=== PATIENT | female | born 2000 | race Caucasian/White ===

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

== ENCOUNTER 2018-02-04 13:04 | Inpatient (IN) | payer OTHER ==
[2018-02-04] MEDS ORDERED: Lidocaine 1% 50 ML MDV INJECT PRN (15:00)
[2018-02-04] MEDS ORDERED: Nalbuphine 10 MG/1 ML Vial IVPUSH PRN (15:00)
[2018-02-04] MEDS ORDERED: Oxytocin/0.9 % Sodium Chloride 30 UNIT/500 ML BAG IV SCH ×2 (15:00→17:15)
[2018-02-04] MEDS ORDERED: Sodium Chloride 0.9% 10 ML Syringe FLUSH PRN (15:00)
[2018-02-04] MEDS ORDERED: Water For Irrigation,Sterile 1,000 ML Container IRR PRN (15:00)
[2018-02-04] MEDS ORDERED: Tranexamic Acid 1,000 MG in Sodium Chloride 0.9% 100 ML IV PRN (15:00)
[2018-02-04] MEDS ORDERED: Misoprostol 200 MCG Tab PO PRN (15:00)
[2018-02-04] MEDS ORDERED: Sodium Chloride 0.9% 2.5 ML Syringe FLUSH PRN (15:00)
[2018-02-04] MEDS ORDERED: Methylergonovine 0.2 MG/1 ML Amp IM PRN (15:00)
[2018-02-04] MEDS ORDERED: Carboprost Tromethamine 250 MCG/1 ML Amp IM PRN (15:00)
--- NOTE | 2018-02-04 15:14 | PCM.LDHP ---
L&D History of Present Illness - General Date of Service: 02/04/18 Admit Problem/Dx: Patient Status Order with Admit Dx/Problem 02/04/18 13:13 Patient Status [ADT] Routine 02/04/18 15:00 Patient Status [ADT] Routine Admission Diagnosis/Problem Admission Diagnosis/Problem - planned 02/04/18 15:11 17yo EDC 02/06/2018 39 5/7wks, A+, RI, GBS pos. Active labor Source of Information: Patient History Limitations: Reports: No Limitations - History of Present Illness Timing/Duration: Reports: minutes: Location, : Reports: Abdomen Quality: Reports: Ache Improves with: Reports: None Worsens with: Reports: None Associated Symptoms: Reports: N - Related Data Allergies/Adverse Reactions: Allergies Allergy/AdvReac Type Severity Reaction Status Date / Time No Known Allergies Allergy Verified 12/28/17 17:13 Home Medications: Home Meds Pnv No.95/Ferrous Fum/Folic AC [ Multivitamin Tablet] 1 tab PO DAILY [History] Past Medical History - Past Health History Medical/Surgical History: Denies 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: , 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/BYN History: currently 13 weeks ; Social & Family History - Family History Family Medical History: Noncontributory - Caffeine Use Caffeine Use: Reports: None H&P Review of Systems - Review of Systems: Review Of Systems: See Below General: Reports: No Symptoms HEENT: Reports: No Symptoms Pulmonary: Reports: No Symptoms Cardiovascular: Reports: No Symptoms Gastrointestinal: Reports: No Symptoms Genitourinary: Reports: No Symptoms Musculoskeletal: Reports: No Symptoms Skin: Reports: No Symptoms Psychiatric: Reports: No Symptoms Neurological: Reports: No Symptoms Hematologic/Lymphatic: Reports: No Symptoms Immunologic: Reports: No Symptoms L&D Exam - Exam Exam: See Below - OB Specific Contraction Intensity: Moderate to Strong Movement: Active Heart Tones: Present Heart Tones per Min: 140 Heart Rate (FHR) Variability: Moderate (6-25 bmp) Presentation: Vertex Estimated Weight: 3250 - Eugene Score Eugene Score Cervix Position: Anterior Eugene Score Consistency: Soft Eugene Score Effacement: >80% Eugene Score Dilation: 3-4 cm Eugene Score Infant's Station: -2 Eugene Score Total: 10 - Exam General: Alert, Oriented, Cooperative HEENT: Hearing Intact Lungs: Clear to Auscultation, Normal Respiratory Effort Cardiovascular: Regular Rate, Regular Rhythm, Normal S1, Normal S2 GI/Abdominal Exam: Soft, Non-Tender Rectal Exam: Deferred Genitourinary: Normal external exam, Normal bimanual exam, Cervical dilitation Back Exam: Normal Inspection, Full Range of Motion Extremities: Normal Inspection, Normal Range of Motion, Non-Tender, No Pedal Edema, Normal Capillary Refill Skin: Warm, Dry, Intact Neurological: Cranial Nerves Intact, Reflexes Equal Bilateral, Strength Equal Bilateral, Normal Gait, Normal Speech, Normal Tone, Sensation Intact Psychiatric: Alert, Normal Affect, Normal Mood - Patient Data Lab Results Last 24 hrs: Laboratory Results - last 24 hr 02/04/18 Range/Units 13:15 Urine Color YELLOW Urine Appearance CLEAR Urine pH 7.0 (5.0-8.0) Ur Specific [place] 1.015 (1.001-1.035) Urine Protein NEGATIVE (NEGATIVE) mg/dL Urine Glucose (UA) NEGATIVE (NEGATIVE) mg/dL Urine Ketones NEGATIVE (NEGATIVE) mg/dL Urine Occult Blood NEGATIVE (NEGATIVE) Urine Nitrite NEGATIVE (NEGATIVE) Urine Bilirubin NEGATIVE (NEGATIVE) Urine Urobilinogen 0.2 (<2.0) EU/dL Ur Leukocyte Esterase SMALL (NEGATIVE) - Problem List (1) Supervision of normal IUP (intrauterine ) in primigravida SNOMED Code(s): 20220948, 408494889, 134730129, 314441259 ICD Code: Z34.00 - ENCNTR FOR SUPRVSN OF NORMAL FIRST , UNSP TRIMESTER Status: Acute Priority: High Current Visit: Yes Qualifiers: Trimester: third trimester Qualified Code(s): Z34.03 - Encounter for supervision of normal first , third trimester Problem List Initiated/Reviewed/Updated: Yes Orders Last 24hrs: Active Orders 24 hr Category Date Time Status Patient Status [ADT] Routine ADT 02/04/18 15:00 Active Heart Tones [RC] CONTINUOUS Care 02/04/18 15:00 Active Non Stress Test [RC] PER UNIT ROUTINE Care 02/04/18 15:00 Active May Shower [RC] ASDIRECTED Care 02/04/18 15:00 Active Notify Provider [RC] PRN Care 02/04/18 15:00 Active Up ad Mojgan [RC] ASDIRECTED Care 02/04/18 13:13 Active Up ad Mojgan [RC] ASDIRECTED Care 02/04/18 15:00 Active Vaginal Exam [RC] PRN Care 02/04/18 15:00 Active Vital Signs [RC] PER UNIT ROUTINE Care 02/04/18 13:13 Active Vital Signs [RC] PER UNIT ROUTINE Care 02/04/18 15:00 Active CBC W/O DIFF,HEMOGRAM [HEME] Routine Lab 02/04/18 15:00 Ordered TYPE AND SCREEN [BBK] Routine Lab 02/04/18 15:00 Ordered Ampicillin 1 gm Med 02/04/18 19:30 Active Sodium Chloride 0.9% [Normal Saline] 50 ml IV Q4H Ampicillin 2 gm Med 02/04/18 15:30 Active Sodium Chloride 0.9% [Normal Saline] 100 ml IV ONETIME Carboprost Tromethamine [Hemabate DS] Med 02/04/18 15:00 Active 250 mcg IM ASDIRECTED PRN Lactated Ringers [Ringers, Lactated] 1,000 ml Med 02/04/18 15:00 Active IV ASDIRECTED Lidocaine 1% [Xylocaine 1%] Med 02/04/18 15:00 Active 50 ml INJECT ONETIME PRN Methylergonovine [Methergine] Med 02/04/18 15:00 Active 0.2 mg IM ASDIRECTED PRN Nalbuphine [Nubain] Med 02/04/18 15:00 Active 10 mg IVPUSH Q1H PRN Oxytocin/0.9 % Sodium Chloride [Oxytocin 30 Unit/500 ML Med 02/04/18 15:00 Active -NS] 30 unit in 500 ml IV TITRATE Sodium Chloride 0.9% [Saline Flush] Med 02/04/18 15:00 Active 10 ml FLUSH ASDIRECTED PRN Sodium Chloride 0.9% [Saline Flush] Med 02/04/18 15:00 Active 2.5 ml FLUSH ASDIRECTED PRN Tranexamic Acid [Cyklokapron] 1,000 mg Med 02/04/18 15:00 Active Sodium Chloride 0.9% [Normal Saline] 100 ml IV ONETIME Water For Irrigation,Sterile [Sterile Water for Med 02/04/18 15:00 Active Irrigation] 1,000 ml IRR ASDIRECTED PRN miSOPROStol [Cytotec] Med 02/04/18 15:00 Active 200 mcg PO ONETIME PRN Scalp Electrode [WOMSER] Per Unit Routine Oth 02/04/18 15:00 Ordered Peripheral IV Insertion Adult [OM.PC] Routine Oth 02/04/18 15:00 Ordered Resuscitation Status Routine Resus Stat 02/04/18 13:13 Ordered Medication Orders Carboprost Tromethamine (Hemabate Ds) 250 mcg IM ASDIRECTED PRN PRN Reason: Post Hemorrhage Lactated Ringer's (Ringers, Lactated) 1,000 mls @ 150 mls/hr IV ASDIRECTED DANY Oxytocin/Sodium Chloride (Oxytocin 30 Unit/500 Ml-Ns) 30 unit in 500 mls @ 999 mls/hr IV TITRATE DANY Tranexamic Acid 1,000 mg/ (Sodium Chloride) 110 mls @ 660 mls/hr IV ONETIME PRN PRN Reason: Bleeding Ampicillin Sodium 2 gm/ Sodium (Chloride) 100 mls @ 200 mls/hr IV ONETIME ONE Stop: 02/04/18 15:59 Ampicillin Sodium 1 gm/ Sodium (Chloride) 50 mls @ 100 mls/hr IV Q4H DANY Lidocaine HCl (Xylocaine 1%) 50 ml INJECT ONETIME PRN PRN Reason: Laceration repair Methylergonovine Maleate (Methergine) 0.2 mg IM ASDIRECTED PRN PRN Reason: Post Hemorrhage Misoprostol (Cytotec) 200 mcg PO ONETIME PRN PRN Reason: Post Hemorrhage Nalbuphine HCl (Nubain) 10 mg IVPUSH Q1H PRN PRN Reason: Pain (severe 7-10) Sodium Chloride (Saline Flush) 10 ml FLUSH ASDIRECTED PRN PRN Reason: Keep Vein Open Sodium Chloride (Saline Flush) 2.5 ml FLUSH ASDIRECTED PRN PRN Reason: Keep Vein Open Sterile Water (Sterile Water For Irrigation) 1,000 ml IRR ASDIRECTED PRN PRN Reason: delivery Assessment/Plan Comment:: Labor A: 17yo EDC 02/06/2018 39 5/7wks, A+, RI, GBS pos. Active labor P: Admit, epidural, Amp for GBS pos per protocol, anticipate . Dr Douglas updated
[2018-02-04] MEDS: Lactated Ringers 1,000 ML IV SCH ×3 (15:25→19:30)
[2018-02-04] MEDS ORDERED: Ampicillin 2 GM in Sodium Chloride 0.9% 100 ML IV ONE (15:30)
[2018-02-04] MEDS ORDERED: Ropivacaine HCl/PF 100 ML ONE (16:16)
[2018-02-04] MEDS ORDERED: fentaNYL 100 MCG/2 ML SDV ONE (16:16)
--- NOTE | 2018-02-04 16:44 | PCM.PREANE ---
Preanesthetic Assessment - Anesthesia/Transfusion/Family Hx Anesthesia History: No Prior Anesthesia Family History of Anesthesia Reaction: No - Review of Systems General: No Symptoms Pulmonary: No Symptoms Cardiovascular: No Symptoms Gastrointestinal: No Symptoms Neurological: No Symptoms Other: Reports: None - Physical Assessment NPO Status Date: 02/04/18 NPO Status Time: 11:00 Height: 1.68 m Weight: 87.09 kg ASA Class: 1 Mental Status: Alert & Oriented x3 Dentition: Reports: Normal Dentition - Lab Values: Laboratory Last Values WBC 13.61 K/uL (4.0-11.0) H 02/04/18 15:23 RBC 4.45 M/uL (4.30-5.90) 02/04/18 15:23 Hgb 11.2 g/dL (12.0-16.0) L 02/04/18 15:23 Hct 34.0 % (36.0-46.0) L 02/04/18 15:23 MCV 76.4 fL (80.0-98.0) L 02/04/18 15:23 MCH 25.2 pg (27.0-32.0) L 02/04/18 15:23 MCHC 32.9 g/dL (31.0-37.0) 02/04/18 15:23 RDW Std Deviation 36.5 fl (28.0-62.0) 02/04/18 15:23 RDW Coeff of Linda 13 % (11.0-15.0) 02/04/18 15:23 Plt Count 254 K/uL (150-400) 02/04/18 15:23 MPV 10.80 fL (7.40-12.00) 02/04/18 15:23 Nucleated RBC % 0.0 /100WBC 02/04/18 15:23 Nucleated RBCs # 0 K/uL 02/04/18 15:23 Urine Color YELLOW 02/04/18 13:15 Urine Appearance CLEAR 02/04/18 13:15 Urine pH 7.0 (5.0-8.0) 02/04/18 13:15 Ur Specific [place] 1.015 (1.001-1.035) 02/04/18 13:15 Urine Protein NEGATIVE mg/dL (NEGATIVE) 02/04/18 13:15 Urine Glucose (UA) NEGATIVE mg/dL (NEGATIVE) 02/04/18 13:15 Urine Ketones NEGATIVE mg/dL (NEGATIVE) 02/04/18 13:15 Urine Occult Blood NEGATIVE (NEGATIVE) 02/04/18 13:15 Urine Nitrite NEGATIVE (NEGATIVE) 02/04/18 13:15 Urine Bilirubin NEGATIVE (NEGATIVE) 02/04/18 13:15 Urine Urobilinogen 0.2 EU/dL (<2.0) 02/04/18 13:15 Ur Leukocyte Esterase SMALL (NEGATIVE) 02/04/18 13:15 - Allergies Allergies/Adverse Reactions: Allergies Allergy/AdvReac Type Severity Reaction Status Date / Time No Known Allergies Allergy Verified 12/28/17 17:13 - Acknowledgements Anesthesia Type Planned: Epidural Pt an Appropriate Candidate for the Planned Anesthesia: Yes Alternatives and Risks of Anesthesia Discussed w Pt/Guardian: Yes Pt/Guardian Understands and Agrees with Anesthesia Plan: Yes PreAnesthesia Questionnaire - Past Health History Medical/Surgical History: Denies 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: , 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/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: currently 13 weeks ; - HOME MEDS Home Medications: Home Meds Pnv No.95/Ferrous Fum/Folic AC [ Multivitamin Tablet] 1 tab PO DAILY [History] - CURRENT (IN HOUSE) MEDS Current Meds: Current Medications Carboprost Tromethamine (Hemabate Ds) 250 mcg IM ASDIRECTED PRN PRN Reason: Post Hemorrhage Lactated Ringer's (Ringers, Lactated) 1,000 mls @ 150 mls/hr IV ASDIRECTED [facility] Last Admin: 02/04/18 16:25 Dose: 999 mls/hr Oxytocin/Sodium Chloride (Oxytocin 30 Unit/500 Ml-Ns) 30 unit in 500 mls @ 999 mls/hr IV TITRATE [facility] Tranexamic Acid 1,000 mg/ (Sodium Chloride) 110 mls @ 660 mls/hr IV ONETIME PRN PRN Reason: Bleeding Ampicillin Sodium 1 gm/ Sodium (Chloride) 50 mls @ 100 mls/hr IV Q4H [facility] Lidocaine HCl (Xylocaine 1%) 50 ml INJECT ONETIME PRN PRN Reason: Laceration repair Methylergonovine Maleate (Methergine) 0.2 mg IM ASDIRECTED PRN PRN Reason: Post Hemorrhage Misoprostol (Cytotec) 200 mcg PO ONETIME PRN PRN Reason: Post Hemorrhage Nalbuphine HCl (Nubain) 10 mg IVPUSH Q1H PRN PRN Reason: Pain (severe 7-10) Sodium Chloride (Saline Flush) 10 ml FLUSH ASDIRECTED PRN PRN Reason: Keep Vein Open Sodium Chloride (Saline Flush) 2.5 ml FLUSH ASDIRECTED PRN PRN Reason: Keep Vein Open Sterile Water (Sterile Water For Irrigation) 1,000 ml IRR ASDIRECTED PRN PRN Reason: delivery Discontinued Medications Fentanyl (Sublimaze) Confirm Administered Dose 100 mcg .ROUTE .STK-MED ONE Stop: 02/04/18 16:17 Ampicillin Sodium 2 gm/ Sodium (Chloride) 100 mls @ 200 mls/hr IV ONETIME ONE Stop: 02/04/18 15:59 Last Admin: 02/04/18 15:34 Dose: 200 mls/hr Ropivacaine (Naropin 0.2%) Confirm Administered Dose 100 mls @ as directed .ROUTE .STK-MED ONE Stop: 02/04/18 16:17
--- NOTE | 2018-02-04 16:47 | PCM.PRNOTE ---
- Free Text/Narrative Note: Anes Note Patient requests epidural for L&D. Sitting position. Level L3-L4 midline approach. Chloraprep skin prep. Sterile draps applied. Epidural space easily achieved single attempt using KARSON and midline approach. KARSON at 4 cm. Cath threaded 5 cm with ease. Sterile dressing applied. Test dose negative Loading dose 10cc pump solution in slow divided doses. Pu,ps strated at 8 cc hr with 6 cc q 20 min prn bolus. Patient reports excelletn analgesia. Leroy Wilkinson UMBRELLA TIPPER
[2018-02-04] MEDS: Ampicillin 1 GM in Sodium Chloride 0.9% 50 ML IV SCH ×2 (19:30→23:28)
--- NOTE | 2018-02-05 00:12 | PCM.POSTAN ---
POST ANESTHESIA ASSESSMENT - MENTAL STATUS Mental Status: Alert - RESPIRATORY Respiratory Status: Respiratory Rate WNL - CARDIOVASCULAR CV Status: Pulse Rate WNL - GASTROINTESTINAL GI Status: No Symptoms - POST OP HYDRATION Hydration Status: Adequate & Stable
--- NOTE | 2018-02-05 00:14 | PCM48HPAN ---
Post Anesthesia Note - EVALUATION WITHIN 48HRS OF ANESTHETIC Vital Signs in Normal Range: Yes Patient Participated in Evaluation: Yes Respiratory Function Stable: Yes Airway Patent: Yes Cardiovascular Function Stable: Yes Hydration Status Stable: Yes Pain Control Satisfactory: Yes Nausea and Vomiting Control Satisfactory: Yes Mental Status Recovered: Yes
[2018-02-05] MEDS ORDERED: fentaNYL 100 MCG/2 ML SDV ONE (01:07)
[2018-02-05] MEDS ORDERED: Ropivacaine HCl/PF 100 ML ONE (01:08)
--- NOTE | 2018-02-05 01:17 | PCM.PRNOTE ---
- Free Text/Narrative Note: Anes Note Epidural infusion complete. Epidural bag changed with 100 cc 0.2% ropivicaine with 100 mcg fentanyl added. Infusion continues at 8 cc hr with 6 cc q 20 min prn bolus. Patient reports excellent analgesia. Leroy Wilkinson CRNA
[2018-02-05] MEDS ORDERED: Ondansetron 4 MG/2 ML SDV IVPUSH ONE (03:16)
[2018-02-05] MEDS: Ampicillin 1 GM in Sodium Chloride 0.9% 50 ML IV SCH (03:24)
[2018-02-05] MEDS ORDERED: Bisacodyl 10 MG Supp RECTAL PRN (05:26)
[2018-02-05] MEDS ORDERED: Benzocaine/Menthol 20%-0.5% Spray 78 GM Cannister TOP PRN (05:26)
[2018-02-05] MEDS ORDERED: Acetaminophen 500 MG Tab PO PRN ×2 (05:26)
[2018-02-05] MEDS ORDERED: Lanolin 100% Cream 7 GM Tube TOP PRN (05:26)
[2018-02-05] MEDS ORDERED: oxyCODONE 5 MG Tab PO PRN (05:26)
[2018-02-05] MEDS ORDERED: Ibuprofen 400 MG Tab PO PRN (05:26)
[2018-02-05] MEDS ORDERED: Witch Hazel Medicated Pads 40/Jar TOP PRN (05:26)
[2018-02-05] MEDS ORDERED: Docusate Sodium 100 MG Cap PO PRN (05:26)
--- NOTE | 2018-02-05 05:31 | PCM.DEL ---
L & D Note - General Info Date of Service: 02/05/18 Mother's Due Date: 02/06/18 - Delivery Note Labor: Spontaneous Delivery Outcome: Livebirth Infant Delivery Method: Spontaneous Vaginal Delivery-Single Infant Delivery Mode: Spontaneous Presentation: Vertex Nuchal Cord: None Anesthesia Type: Epidural Amniotic Fluid Description: Meconium Stained Episiotomy Type: None Laceration: None Placenta: Intact, Spontaneous Cord: 3 Vessels Estimated Blood Loss: 150 Resuscitation Needed: No Grant: Stimulated Score 1 min: 7 Score 5 min: 8 Second Stage Interventions: Reports: Pushing, Pulls Own Legs Back Induction Criteria - Augmentation Estimated Pelvis: Reports: Adequate Weight Estimated:: Reports: AGA Reassuring Monitoring Strip: Yes Absence of Tachy Systole: Yes - General Info Date of Service: 02/05/18 Admission Dx/Problem (Free Text): Patient Status Order with Admit Dx/Problem 02/04/18 13:13 Patient Status [ADT] Routine 02/04/18 15:00 Patient Status [ADT] Routine Admission Diagnosis/Problem Admission Diagnosis/Problem - planned 02/04/18 15:11 17yo EDC 02/06/2018 39 5/7wks, A+, RI, GBS pos. Active labor Functional Status: Reports: Pain Controlled - Review of Systems General: Reports: No Symptoms HEENT: Reports: No Symptoms Pulmonary: Reports: No Symptoms Cardiovascular: Reports: No Symptoms Gastrointestinal: Reports: No Symptoms Genitourinary: Reports: No Symptoms Musculoskeletal: Reports: No Symptoms Skin: Reports: No Symptoms Neurological: Reports: No Symptoms Psychiatric: Reports: No Symptoms - Patient Data Weight - Most Recent: 87.09 kg Lab Results Last 24 Hours: Laboratory Results - last 24 hr 02/04/18 02/04/18 02/04/18 Range/Units 13:15 15:23 15:23 WBC 13.61 H (4.0-11.0) K/uL RBC 4.45 (4.30-5.90) M/uL Hgb 11.2 L (12.0-16.0) g/dL Hct 34.0 L (36.0-46.0) % MCV 76.4 L (80.0-98.0) fL MCH 25.2 L (27.0-32.0) pg MCHC 32.9 (31.0-37.0) g/dL RDW Std Deviation 36.5 (28.0-62.0) fl RDW Coeff of Linda 13 (11.0-15.0) % Plt Count 254 (150-400) K/uL MPV 10.80 (7.40-12.00) fL Nucleated RBC % 0.0 /100WBC Nucleated RBCs # 0 K/uL Urine Color YELLOW Urine Appearance CLEAR Urine pH 7.0 (5.0-8.0) Ur Specific [place] 1.015 (1.001-1.035) Urine Protein NEGATIVE (NEGATIVE) mg/dL Urine Glucose (UA) NEGATIVE (NEGATIVE) mg/dL Urine Ketones NEGATIVE (NEGATIVE) mg/dL Urine Occult Blood NEGATIVE (NEGATIVE) Urine Nitrite NEGATIVE (NEGATIVE) Urine Bilirubin NEGATIVE (NEGATIVE) Urine Urobilinogen 0.2 (<2.0) EU/dL Ur Leukocyte Esterase SMALL (NEGATIVE) Blood Type A POSITIVE Antibody Screen NEGATIVE Med Orders - Current: Current Medications Acetaminophen (Tylenol Extra Strength) 500 mg PO Q4H PRN PRN Reason: Pain Acetaminophen (Tylenol Extra Strength) 1,000 mg PO Q4H PRN PRN Reason: Pain Benzocaine/Menthol (Dermoplast Pain Relief 20%-0.5% [place]) 78 gm TOP ASDIRECTED PRN PRN Reason: Perineal Comfort Measure Bisacodyl (Dulcolax) 10 mg RECTAL ONETIME PRN PRN Reason: Constipation Docusate Sodium (Colace) 100 mg PO BID PRN PRN Reason: Constipation Ibuprofen (Motrin) 400 mg PO Q4H PRN PRN Reason: Pain Discontinued Medications Carboprost Tromethamine (Hemabate Ds) 250 mcg IM ASDIRECTED PRN PRN Reason: Post Hemorrhage Fentanyl (Sublimaze) Confirm Administered Dose 100 mcg .ROUTE .STK-MED ONE Stop: 02/04/18 16:17 Last Admin: 02/04/18 19:11 Dose: Not Given Fentanyl (Sublimaze) Confirm Administered Dose 100 mcg .ROUTE .STK-MED ONE Stop: 02/05/18 01:08 Last Admin: 02/05/18 02:14 Dose: Not Given Lactated Ringer's (Ringers, Lactated) 1,000 mls @ 150 mls/hr IV ASDIRECTED DANY Last Admin: 02/04/18 19:30 Dose: 150 mls/hr Oxytocin/Sodium Chloride (Oxytocin 30 Unit/500 Ml-Ns) 30 unit in 500 mls @ 999 mls/hr IV TITRATE DANY Tranexamic Acid 1,000 mg/ (Sodium Chloride) 110 mls @ 660 mls/hr IV ONETIME PRN PRN Reason: Bleeding Ampicillin Sodium 2 gm/ Sodium (Chloride) 100 mls @ 200 mls/hr IV ONETIME ONE Stop: 02/04/18 15:59 Last Admin: 02/04/18 15:34 Dose: 200 mls/hr Ampicillin Sodium 1 gm/ Sodium (Chloride) 50 mls @ 100 mls/hr IV Q4H DANY Last Admin: 02/05/18 03:24 Dose: 100 mls/hr Ropivacaine (Naropin 0.2%) Confirm Administered Dose 100 mls @ as directed .ROUTE .STK-MED ONE Stop: 02/04/18 16:17 Last Admin: 02/04/18 19:11 Dose: Not Given Oxytocin/Sodium Chloride (Oxytocin 30 Unit/500 Ml-Ns) 30 unit in 500 mls @ 2 mls/hr IV TITRATE DANY; Protocol Last Infusion: 02/05/18 02:11 Dose: 4 munits/min, 4 mls/hr Ropivacaine (Naropin 0.2%) Confirm Administered Dose 100 mls @ as directed .ROUTE .ST-MED ONE Stop: 02/05/18 01:09 Last Admin: 02/05/18 02:14 Dose: Not Given Lidocaine HCl (Xylocaine 1%) 50 ml INJECT ONETIME PRN PRN Reason: Laceration repair Methylergonovine Maleate (Methergine) 0.2 mg IM ASDIRECTED PRN PRN Reason: Post Hemorrhage Misoprostol (Cytotec) 200 mcg PO ONETIME PRN PRN Reason: Post Hemorrhage Nalbuphine HCl (Nubain) 10 mg IVPUSH Q1H PRN PRN Reason: Pain (severe 7-10) Ondansetron HCl (Zofran) 4 mg IVPUSH ONETIME ONE Stop: 02/05/18 03:17 Last Admin: 02/05/18 03:22 Dose: 4 mg Sodium Chloride (Saline Flush) 10 ml FLUSH ASDIRECTED PRN PRN Reason: Keep Vein Open Sodium Chloride (Saline Flush) 2.5 ml FLUSH ASDIRECTED PRN PRN Reason: Keep Vein Open Sterile Water (Sterile Water For Irrigation) 1,000 ml IRR ASDIRECTED PRN PRN Reason: delivery - Exam General: Alert, Oriented, Cooperative, No Acute Distress Lungs: Normal Respiratory Effort GI/Abdominal Exam: Soft, Non-Tender (Female) Exam: Normal External Exam, Normal Bimanual Exam, Vaginal Bleeding Back Exam: Normal Inspection, Full Range of Motion Extremities: Normal Inspection, Normal Range of Motion, Non-Tender, Normal Capillary Refill, Pedal Edema Skin: Warm, Dry, Intact Wound/Incisions: Healing Well Neurological: No New Focal Deficit, Normal Speech, Normal Tone, Strength Equal Bilateral Psy/Mental Status: Alert, Normal Affect, Normal Mood - Problem List & Annotations (1) Supervision of normal IUP (intrauterine ) in primigravida SNOMED Code(s): 49883554, 085272545, 254104388, 435433959 Code(s): Z34.00 - ENCNTR FOR SUPRVSN OF NORMAL FIRST , UNSP TRIMESTER Status: Acute Priority: High Current Visit: Yes Qualifiers: Trimester: third trimester Qualified Code(s): Z34.03 - Encounter for supervision of normal first , third trimester (2) (normal spontaneous vaginal delivery) SNOMED Code(s): 33728464 Code(s): O80 - ENCOUNTER FOR FULL-TERM UNCOMPLICATED DELIVERY Status: Acute Priority: Low Current Visit: Yes - Problem List Review Problem List Initiated/Reviewed/Updated: Yes - My Orders Last 24 Hours: My Active Orders 02/04/18 13:13 Vital Signs [RC] PER UNIT ROUTINE 02/04/18 15:00 May Shower [RC] ASDIRECTED Notify Provider [RC] PRN Up ad Mojgan [RC] ASDIRECTED 02/05/18 05:26 May Shower [RC] ASDIRECTED Up ad Mojgan [RC] ASDIRECTED Vital Signs [RC] PER UNIT ROUTINE Acetaminophen [Tylenol Extra Strength] 1,000 mg PO Q4H PRN Acetaminophen [Tylenol Extra Strength] 500 mg PO Q4H PRN Benzocaine/Menthol [Dermoplast Pain Relief 20%-0.5% [place]] 78 gm TOP ASDIRECTED PRN Bisacodyl [Dulcolax] 10 mg RECTAL ONETIME PRN Docusate Sodium [Colace] 100 mg PO BID PRN Ibuprofen [Motrin] 400 mg PO Q4H PRN Ibuprofen [Motrin] 800 mg PO Q6H PRN Lanolin [Lansinoh HPA] See Dose Instructions TOP ASDIRECTED PRN Witch Jocelyne [Tucks] 1 pad TOP ASDIRECTED PRN oxyCODONE 5 mg PO Q2H PRN Assess Lochia [WOMSER] Per Unit Routine Assess Uterine Involution [WOMSER] Per Unit Routine Peripheral IV Discontinue [OM.PC] Routine 02/05/18 05:27 Patient Status [ADT] Routine 02/05/18 Breakfast Regular Diet [DIET] - Plan Plan:: Labor A: 17yo EDC 02/06/2018 39 5/7wks, A+, RI, GBS pos. Active labor P: Admit, epidural, Amp for GBS pos per protocol, anticipate . Dr Douglas updated Delivery A: of viable male, Mec stained fluid, APGARS 7/8, Wt: 8#9oz 3880gm, Intact perineum, EBL 150cc, Mother and baby left in stable condition for recovery. P: Routine PP plan of care
[2018-02-05] MEDS: Ibuprofen 800 MG Tab PO PRN ×2 (06:54→20:29)
--- NOTE | 2018-02-06 08:05 | PCM.DCSUM1 ---
Discharge Summary - Hospital Course Free Text/Narrative:: Discharge home with . Follow up in 6 weeks for post visit or sooner if needed. Diagnosis: Stroke: No - Discharge Data Discharge Date: 02/06/18 Discharge Disposition: Home, Self-Care 01 Condition: Good - Discharge Diagnosis/Problem(s) (1) Supervision of normal IUP (intrauterine ) in primigravida SNOMED Code(s): 93594549, 128898104, 139842391, 331851501 ICD Code: Z34.00 - ENCNTR FOR SUPRVSN OF NORMAL FIRST , UNSP TRIMESTER Status: Acute Priority: High Current Visit: Yes Qualifiers: Trimester: third trimester Qualified Code(s): Z34.03 - Encounter for supervision of normal first , third trimester (2) (normal spontaneous vaginal delivery) SNOMED Code(s): 74163236 ICD Code: O80 - ENCOUNTER FOR FULL-TERM UNCOMPLICATED DELIVERY Status: Acute Priority: Low Current Visit: Yes - Patient Instructions Diet: Usual Diet as Tolerated Activity: As Tolerated, No Strenuous Activities, Rest and Relax Today Driving: May Drive Today Showering/Bathing: May Shower Notify Provider of: Fever, Increased Pain, Swelling and Redness, Nausea and/or Vomiting Other/Special Instructions: Discharge home with infant. Follow up in 6 weeks for post visit or sooner if needed. - Discharge Plan *PRESCRIPTION DRUG MONITORING PROGRAM REVIEWED*: Not Applicable *COPY OF PRESCRIPTION DRUG MONITORING REPORT IN PATIENT ADRIANNA: Not Applicable Home Medications: Home Meds Pnv No.95/Ferrous Fum/Folic AC [ Multivitamin Tablet] 1 tab PO DAILY [History] - General Info Date of Service: 02/06/18 Admission Dx/Problem (Free Text: Patient Status Order with Admit Dx/Problem 02/04/18 13:13 Patient Status [ADT] Routine 02/04/18 15:00 Patient Status [ADT] Routine Admission Diagnosis/Problem Admission Diagnosis/Problem - planned 02/04/18 15:11 17yo EDC 02/06/2018 39 5/7wks, A+, RI, GBS pos. Active labor Functional Status: Reports: Pain Controlled, Tolerating Diet, Ambulating, Urinating - Review of Systems General: Reports: No Symptoms HEENT: Reports: No Symptoms Pulmonary: Reports: No Symptoms Cardiovascular: Reports: No Symptoms Gastrointestinal: Reports: No Symptoms Genitourinary: Reports: No Symptoms Musculoskeletal: Reports: No Symptoms Skin: Reports: No Symptoms Neurological: Reports: No Symptoms Psychiatric: Reports: No Symptoms - Patient Data Vitals - Most Recent: Last Vital Signs Temp 36.2 C 02/06/18 05:30 Pulse 75 02/06/18 05:30 Resp 15 02/06/18 05:30 BP 112/59 L 02/06/18 05:30 Pulse Ox 98 02/06/18 05:30 Weight - Most Recent: 87.09 kg Med Orders - Current: Current Medications Acetaminophen (Tylenol Extra Strength) 500 mg PO Q4H PRN PRN Reason: Pain Acetaminophen (Tylenol Extra Strength) 1,000 mg PO Q4H PRN PRN Reason: Pain Last Admin: 02/05/18 05:59 Dose: 1,000 mg Benzocaine/Menthol (Dermoplast Pain Relief 20%-0.5% [place]) 78 gm TOP ASDIRECTED PRN PRN Reason: Perineal Comfort Measure Last Admin: 02/05/18 20:29 Dose: 1 spray Bisacodyl (Dulcolax) 10 mg RECTAL ONETIME PRN PRN Reason: Constipation Docusate Sodium (Colace) 100 mg PO BID PRN PRN Reason: Constipation Last Admin: 02/05/18 20:29 Dose: 100 mg Emollient Ointment (Lansinoh Hpa) 0 gm TOP ASDIRECTED PRN PRN Reason: Sore Nipples Last Admin: 02/05/18 20:29 Dose: 1 gm Ibuprofen (Motrin) 400 mg PO Q4H PRN PRN Reason: Pain Ibuprofen (Motrin) 800 mg PO Q6H PRN PRN Reason: Pain Last Admin: 02/05/18 20:29 Dose: 800 mg Oxycodone HCl (Oxycodone) 5 mg PO Q2H PRN PRN Reason: Pain Witch Jocelyne (Tucks) 1 pad TOP ASDIRECTED PRN PRN Reason: comfort care Last Admin: 02/05/18 20:29 Dose: 1 pad Discontinued Medications Carboprost Tromethamine (Hemabate Ds) 250 mcg IM ASDIRECTED PRN PRN Reason: Post Hemorrhage Fentanyl (Sublimaze) Confirm Administered Dose 100 mcg .ROUTE .STK-MED ONE Stop: 02/04/18 16:17 Last Admin: 02/04/18 19:11 Dose: Not Given Fentanyl (Sublimaze) Confirm Administered Dose 100 mcg .ROUTE .STK-MED ONE Stop: 02/05/18 01:08 Last Admin: 02/05/18 02:14 Dose: Not Given Lactated Ringer's (Ringers, Lactated) 1,000 mls @ 150 mls/hr IV ASDIRECTED DANY Last Admin: 02/04/18 19:30 Dose: 150 mls/hr Oxytocin/Sodium Chloride (Oxytocin 30 Unit/500 Ml-Ns) 30 unit in 500 mls @ 999 mls/hr IV TITRATE DANY Tranexamic Acid 1,000 mg/ (Sodium Chloride) 110 mls @ 660 mls/hr IV ONETIME PRN PRN Reason: Bleeding Ampicillin Sodium 2 gm/ Sodium (Chloride) 100 mls @ 200 mls/hr IV ONETIME ONE Stop: 02/04/18 15:59 Last Admin: 02/04/18 15:34 Dose: 200 mls/hr Ampicillin Sodium 1 gm/ Sodium (Chloride) 50 mls @ 100 mls/hr IV Q4H DANY Last Admin: 02/05/18 03:24 Dose: 100 mls/hr Ropivacaine (Naropin 0.2%) Confirm Administered Dose 100 mls @ as directed .ROUTE .STK-MED ONE Stop: 02/04/18 16:17 Last Admin: 02/04/18 19:11 Dose: Not Given Oxytocin/Sodium Chloride (Oxytocin 30 Unit/500 Ml-Ns) 30 unit in 500 mls @ 2 mls/hr IV TITRATE DANY; Protocol Last Infusion: 02/05/18 05:12 Dose: 999 mls/hr Ropivacaine (Naropin 0.2%) Confirm Administered Dose 100 mls @ as directed .ROUTE .STK-MED ONE Stop: 02/05/18 01:09 Last Admin: 02/05/18 02:14 Dose: Not Given Lidocaine HCl (Xylocaine 1%) 50 ml INJECT ONETIME PRN PRN Reason: Laceration repair Methylergonovine Maleate (Methergine) 0.2 mg IM ASDIRECTED PRN PRN Reason: Post Hemorrhage Misoprostol (Cytotec) 200 mcg PO ONETIME PRN PRN Reason: Post Hemorrhage Nalbuphine HCl (Nubain) 10 mg IVPUSH Q1H PRN PRN Reason: Pain (severe 7-10) Ondansetron HCl (Zofran) 4 mg IVPUSH ONETIME ONE Stop: 02/05/18 03:17 Last Admin: 02/05/18 03:22 Dose: 4 mg Sodium Chloride (Saline Flush) 10 ml FLUSH ASDIRECTED PRN PRN Reason: Keep Vein Open Sodium Chloride (Saline Flush) 2.5 ml FLUSH ASDIRECTED PRN PRN Reason: Keep Vein Open Sterile Water (Sterile Water For Irrigation) 1,000 ml IRR ASDIRECTED PRN PRN Reason: delivery - Exam General: Reports: Alert, Oriented, Cooperative, No Acute Distress Lungs: Reports: Clear to Auscultation, Normal Respiratory Effort Cardiovascular: Reports: Regular Rate, Regular Rhythm, No Murmurs GI/Abdominal Exam: Soft, Non-Tender (Female) Exam: Vaginal Bleeding Rectal (Female) Exam: Deferred Back Exam: Reports: Normal Inspection, Full Range of Motion Extremities: Normal Inspection, Normal Range of Motion, Non-Tender, No Pedal Edema, Normal Capillary Refill Skin: Reports: Warm, Dry, Intact Wound/Incisions: Reports: Healing Well Neurological: Reports: No New Focal Deficit, Normal Gait, Normal Speech, Normal Tone, Strength Equal Bilateral Psy/Mental Status: Reports: Alert, Normal Affect, Normal Mood
[2018-02-06 08:26] VITALS: BP 138/61
== END 2018-02-06 10:46 | disposition home or self-care (01) | DRG 775 ==
LOC: MW.OBCHECK 13:04 → MW.OB 13:11 → MW.OBCHECK 14:20 → MW.OB 15:00 → OBSVTOIN 02-05 05:11 → MW.OB 02-05 08:08
PROVIDERS: ADMIT Obstetrics & Gynecology; ATTEND Advanced Practice Midwife
PROC: 10E0XZZ Delivery of Products of Conception, External Approach (ICD-10-PCS; principal; 2018-02-05)
PROC: 10907ZC Drainage of Amniotic Fluid, Therapeutic from Products of Conception, Via Natural or Artificial Opening (ICD-10-PCS; 2018-02-05)
PROC: 00HU33Z Insertion of Infusion Device into Spinal Canal, Percutaneous Approach (ICD-10-PCS; 2018-02-05)
DX: O99.824 Streptococcus B carrier state complicating childbirth (principal); Z3A.39 39 weeks gestation of pregnancy; Z37.0 Single live birth
CPT/HCPCS: 36415; 51702; 59025; 59409; 81003; 85027; 86850; 86900; 86901; A9270-GY; J0290; J2405; J2590; J2795; J3010; J7030; J7050; J7120

== ENCOUNTER 2019-09-22 05:33 | Emergency (ER) | payer BC, OTHER ==
--- NOTE | 2019-09-22 05:59 | EDM.PDOC ---
ED HPI GENERAL MEDICAL PROBLEM - General Chief Complaint: General Stated Complaint: SEIZURE Time Seen by Provider: 09/22/19 05:40 Source of Information: Reports: Patient, Significant Other - History of Present Illness INITIAL COMMENTS - FREE TEXT/NARRATIVE: The patient is a 18-year-old female with no medical history presents to the ER for the concern for a seizure. History was obtained from the patient herself as well as her boyfriend. Per the patient she woke up having some lower abdominal stomach cramps and felt like she had to go to the bathroom so while sitting on the toilet having a bowel movement she started to not feel well, feeling flushed and hot, she then started feeling little bit nauseated and felt like she was going to pass out. The edges of her vision started darkening, and the patient called to her boyfriend. He heard her and came to the bathroom and he stated that her eyes were fluttering, she was leaning on a vanity that was next to the toilet with one arm up and another arm down and she was bracing herself, and she was not very responsive. Her whole body was quivering. He then laid her down on the ground and she started shaking with her eyes fluttering. There was no foaming at the mouth, no incontinence, no tongue biting. While her body was quivering her head remained still. This lasted a couple of minutes and then she became responsive. There was no postictal period , no confusion. The patient states that she just feels a little "out of it" but denies any headaches either before this episode or after, she is not having any abdominal cramping or pain, she is no longer nauseous, and she does not feel lightheaded. No fevers, no visual changes other than that mentioned above , no palpitations, no chest pain, no other acute complaints. - Related Data Allergies Allergy/AdvReac Type Severity Reaction Status Date / Time No Known Allergies Allergy Verified 09/22/19 05:41 Home Meds: Home Meds Non-Formulary Medication [NF Drug] 1 each PO DAILY 09/22/19 [History] Past Medical History - Past Health History Medical/Surgical History: Denies Medical/Surgical History Genitourinary History: Reports: Other (See Below) Other Genitourinary History: History of UTI. JINGLE WRITER History: Reports: , Spontaneous Other JINGLE WRITER History: currently 13 weeks ; Psychiatric History: Reports: Depression Dermatologic History: Reports: Other (See Below) Other Dermatologic History: Acne - Infectious Disease History Infectious Disease History: Reports: None Social & Family History - Family History Family Medical History: Noncontributory Oncologic: Reports: Breast, Lung, Other (See Below) Other Oncologic Family History: Stomach - Tobacco Use Smoking Status *Q: Never Smoker - Caffeine Use Caffeine Use: Reports: Soda - Recreational Drug Use Recreational Drug Use: No ED ROS GENERAL - Review of Systems Review Of Systems: See Below (Positive for nausea, positive for syncope, positive for abdominal cramping, negative for headache, positive for shaking episode, negative for fevers, all other Positives and pertinent negatives as per HPI. All other pertinent systems were reviewed and are negative) ED EXAM, GENERAL - Physical Exam Exam: See Below Free Text/Narrative:: Constitutional: No acute distress, Non-toxic appearance HEENT.: Normocephalic, Atraumatic, PERRL, EOMI, External ears are atraumatic, nares are patent without epistaxis Neck: Normal range of motion, Trachea Midline, No stridor Respiratory.: No respiratory distress, No tachypnea, Lungs Clear to Auscultation bilaterally without wheezes, rales, or rhonchi Cardiovascular.: Regular rate and Rhythm without murmurs, rubs, or gallops, good peripheral perfusion GI: Abdomen soft and non tender, no masses, no rebound, rigidity, or guarding Genital Urinary: Deferred Musculoskeletal: Good range of motion. All 4 extremities present and atraumatic , no edema Back: Full Range of Motion Skin: Warm, Dry, Color is ethnicity appropriate, No acute rash. Lymphatic: No lymphadenopathy noted Neurological: Alert, Awake and oriented x 3, No focal deficits noted appreciate , cerebellar function tests intact, normal gait, GCS 15 Psych: Affect, Judgement, mood normal Course - Vital Signs Text/Narrative:: The patient's history and exam are more consistent with classic syncopal sewed secondary to a vasovagal episode with a nonspecific shaking episode, not a seizure. And especially given that the patient is currently asymptomatic, with no postictal., No neurological complaints, a normal neurological exam, etc. at least initially I do not feel that we need to perform any type of medical or imaging work-up. She is not been complaining of any headaches, visual changes, there has not been any recent trauma, no fevers, etc. The patient was watched for an hour without incident. She did have an episode a few minutes ago where she stated that her abdominal cramps came back and she felt a little nauseous with it but everything went away. She also happened to call her mother who told the patient that the patient's father had numerous episodes where he would get sick and then passed out. The patient is comfortable with my explanation and no lab work or imaging will be performed. I will give her a prescription for some Zofran and she is stable for discharge. Last Recorded V/S: Last Vital Signs Temp 36.1 C 09/22/19 05:42 Pulse 85 09/22/19 05:42 Resp 17 09/22/19 05:42 BP 131/83 09/22/19 05:42 Pulse Ox 97 09/22/19 05:42 Departure - Departure Time of Disposition: 06:38 Disposition: Home, Self-Care 01 Condition: Good Clinical Impression: Vasovagal syncope - Discharge Information Instructions: Syncope, [id number] Referrals: PCP,None [Ordering Only Provider] - Forms: ED Department Discharge Additional Instructions: Use the Zofran prescription when you are nauseous. If you feel like you are going to pass out, lie down on the ground or a bed or somewhere flat until the sensation passes. Return for any concerns. Sepsis Event Note - Evaluation Sepsis Screening Result: No Definite Risk - Focused Exam Vital Signs: Vital Signs Temp Pulse Resp BP Pulse Ox 09/22/19 05:42 36.1 C 85 17 131/83 97 Date Exam was Performed: 09/22/19 Time Exam was Performed: 06:37
[2019-09-22 07:02] VITALS: BP 126/68; PULSE 78
== END 2019-09-22 06:50 | disposition home or self-care (01) ==
LOC: MW.ED 05:33
DX: R55 Syncope and collapse (principal); O99.89 Other specified diseases and conditions complicating pregnancy, childbirth and the puerperium; Z3A.13 13 weeks gestation of pregnancy
CPT/HCPCS: 99283; 99284